=== PATIENT | female | born 1960 | race Caucasian/White ===

== ENCOUNTER → 2018-01-26 | Outpatient (CLI) | payer MEDICARE, OTHER | END | disposition home or self-care (01) | LOC: LAB 13:42 → LAB SHORT 13:42 | PROVIDERS: Nurse Practitioner | DX: Z01.419 Encounter for gynecological examination (general) (routine) without abnormal findings (principal) | CPT/HCPCS: G0145 ==

== ENCOUNTER → 2020-09-10 | Outpatient (CLI) | payer MEDICARE, OTHER | LOC: LAB SHORT 15:46 | DX: N39.0 Urinary tract infection, site not specified (principal) | CPT/HCPCS: 87086 ==

== ENCOUNTER 2022-02-03 08:50 | Day surgery (SDC) | payer MEDICARE, OTHER ==
[~2022-02-03] VITALS: Ht 165.1 cm; Wt 94.0 kg
[2022-02-03] MEDS ORDERED: FLUTICASONE-SA1 EAC1 INH (09:39)
[2022-02-03] MEDS ORDERED: AMIT25 PO (09:40)
[2022-02-03] MEDS ORDERED: Voltaren100 GM TOP (09:40)
[2022-02-03] MEDS ORDERED: NYAMYC15 G1 TOP (09:40)
[2022-02-03] MEDS ORDERED: NYSTATIN15 GM TOP (09:40)
[2022-02-03] MEDS ORDERED: SOLI5 (09:40)
== END 2022-02-03 11:36 | disposition home or self-care (01) ==
LOC: ORSCSDS 08:50
PROVIDERS: Internal Medicine Gastroenterology
PROC: 0DBN8ZX Excision of Sigmoid Colon, Via Natural or Artificial Opening Endoscopic, Diagnostic (ICD-10-PCS; principal; 2022-02-03 10:15)
DX: Z12.11 Encounter for screening for malignant neoplasm of colon (principal); Z86.010 Personal history of colon polyps; D12.5 Benign neoplasm of sigmoid colon; K64.8 Other hemorrhoids; G40.909 Epilepsy, unspecified, not intractable, without status epilepticus; Z79.899 Other long term (current) drug therapy
CPT/HCPCS: 88305; J2704; J7120

== ENCOUNTER → 2023-01-05 | Outpatient (CLI) | payer MEDICARE, OTHER ==
[~2023-01-05] MED LIST: AMIT25 PO; FLUTICASONE-SA1 EAC1 INH; NYAMYC15 G1 TOP; NYSTATIN15 GM TOP; SOLI5; Voltaren100 GM TOP
[2023-01-05 13:48] LABS: BASOPHILS ABSOLUTE AUTO 0.04 K/mm3 (0.00-0.23); BASOPHILS PERCENT AUTO 1 % (0-2); EOSINOPHILS ABSOLUTE AUTO 0.13 K/mm3 (0.00-0.68); EOSINOPHILS PERCENT AUTO 2 % (0-6); Hematocrit 40.4 % (33.0-51.0); Hemoglobin 13.3 g/dL (11.5-16.0); IMMATURE GRAN ABSOLUTE AUTO 0.02 K/mm3 (0.00-0.10); IMMATURE GRAN PERCENT AUTO 0 % (0-1); LYMPHOCYTES ABSOLUTE AUTO 1.75 K/mm3 (0.84-5.20); LYMPHOCYTES PERCENT AUTO 28 % (21-46); MONOCYTES ABSOLUTE AUTO 0.31 K/mm3 (0.16-1.47); MONOCYTES PERCENT AUTO 5 % (4-13); Mean Corpuscular HGB 29.7 pg (26.0-34.0); Mean Corpuscular HGB Conc 32.9 g/dL (31.5-36.5); Mean Corpuscular Volume 90 fL (80-100); Mean Platelet Volume 10.1 fL (9.1-12.4); NEUTROPHILS ABSOLUTE AUTO 3.93 K/mm3 (1.96-9.15); NEUTROPHILS PERCENT AUTO 64 % (41-73); Platelet Count 251 K/mm3 (150-400); RDW Coefficient Variation 12.8 % (11.7-14.2); RDW Standard Deviation 42.6 fL (35.1-46.3); Red Blood Cell Count 4.48 M/mm3 (3.80-5.20); White Blood Cell Count 6.18 K/mm3 (4.00-11.30)
[2023-01-05 15:15] LABS: Alanine Aminotransfer (ALT/SGP 48 U/L (12-78); Albumin, Blood 3.9 g/dL (3.4-5.0); Albumin/Globulin Ratio 1.1 (0.8-1.8); Alk Phos 105 U/L (50-136); Anion Gap 5 mmol/L (6-16); Aspartate Aminotrans (AST/SGOT 24 U/L (12-37); Bilirubin, Total 0.5 mg/dL (0.1-1.0); Blood Urea Nitrogen 11 mg/dL (8-24); CHOL/HDL RATIO 3.1; CO2, Blood 31 mmol/L (21-32); Calcium, Blood 9.7 mg/dL (8.5-10.1); Chloride, Blood 106 mmol/L (98-108); Cholesterol 175 mg/dL (50-200); Globulin, Blood 3.5 g/dL (2.2-4.0); Glucose, Blood 93 mg/dL (70-99); HDL Cholesterol 57 mg/dL (>39); LDL/HDL RATIO 1.8; Low Density Lipoprotein Chol 103 mg/dL (0-110); Sodium, Blood 142 mmol/L (136-145); Total Protein, Blood 7.4 g/dL (6.4-8.2); Triglycerides 77 mg/dL (30-160); Very Low Density Lipoprot Chol 15 mg/dL (6-32)
[2023-01-05 15:18] LABS: Creatinine, Blood 0.65 mg/dL (0.40-1.00); Glomerular Filtration Rate 101 (60-)
[2023-01-05 15:33] LABS: Valproic Acid <3.0 ug/mL (50.0-100.0)
== END | disposition home or self-care (01) ==
LOC: LAB SHORT 09:17 → LAB 09:17
PROVIDERS: Physician Assistant
DX: Z13.220 Encounter for screening for lipoid disorders (principal); G40.209 Localization-related (focal) (partial) symptomatic epilepsy and epileptic syndromes with complex partial seizures, not intractable, without status epilepticus; Z83.3 Family history of diabetes mellitus
CPT/HCPCS: 80053; 80061; 80164; 83036; 85025

== ENCOUNTER 2024-09-07 09:48 | Day surgery (SDC) | payer MEDICARE, OTHER ==
[~2024-09-07 09:48] MED LIST changes: +ALEVAZOL56.7 G1 TOP; +ASCO500 PO; +CRANBERRY125 MG; +Calcium Carbon500 MG PO; +FISH OIL 1,0001 EA10 PO; +FLAX; +Flonase 0.05% N16 GM; +GLUCHON PO; +IRON18 M1; +MELA3; +POTA8; +PROBIOTIC1 EA14; -SOLI5; +SOLI5 PO; +TURMERIC500 M2; +VITAMIN D350 MC3 PO; +Vitamin B Comple1 EA PO; +[UNRECOGNIZED DRUG - OTHER]
== END 2024-09-07 23:00 | disposition home or self-care (01) ==
LOC: MOI US 09:48
DX: D05.11 Intraductal carcinoma in situ of right breast (principal)
CPT/HCPCS: 19285; 77065; A4648; G0279

== ENCOUNTER 2024-09-17 09:26 | Day surgery (SDC) | payer MEDICARE, OTHER ==
[~2024-09-17] VITALS: Ht 162.6 cm; Wt 93.3 kg
[2024-09-17] VITALS (10 sets, daily range): BP systolic 102–141; BP diastolic 58–81
[2024-09-17] MEDS ORDERED: Lactated Ringer's 1,000 ML IV SCH (09:55)
[2024-09-17] MEDS ORDERED: CeFAZolin Sodium 2,000 MG in NS 100 ML IV SCH (09:55)
[2024-09-17] MEDS ORDERED: Bupivacaine 0.5% HCl 5 MG/ML 30MLVIAL ONE ×3 (12:57→13:26)
[2024-09-17] MEDS ORDERED: propofoL 20 ML IV ONE ×2 (13:11→13:52)
[2024-09-17] MEDS ORDERED: FentaNYL Citrate 50 MCG/ML 2 ML Injection ONE (13:11)
--- NOTE | 2024-09-17 13:22 | NUR ---
History, Chart, Medications and Allergies reviewed before start of procedure. Pre-Op teaching done. Pt verbalizes understanding. Patient confirms NPO status and agrees with scheduled surgery. Patient States Post-Procedure ride home has been arranged. MOTHER AT BEDSIDE THOUGHOUT PRE-OP.
[2024-09-17] MEDS ORDERED: propofoL 40 ML IV ONE (13:34)
--- NOTE | 2024-09-17 13:47 | NUR ---
09/17/24 [id number] Kalyn Wood NOTED: SMALL SCRATCHES IN VARIOUS STAGES OF HEALING TO BILATERAL BREASTS
[2024-09-17] MEDS ORDERED: Ondansetron HCl 2 MG / ML 2ML Vial ONE (14:15)
[2024-09-17] MEDS ORDERED: FentaNYL Citrate 50 MCG/ML 2 ML Injection IV PRN ×3 (14:20)
[2024-09-17] MEDS ORDERED: Ondansetron HCl 2 MG / ML 2ML Vial IV PRN (14:20)
[2024-09-17] MEDS ORDERED: HYDROmorphone HCl/Pf 1MG SYR IV PRN (14:20)
[2024-09-17] MEDS ORDERED: HYDROcodone 5-APAP 325 TAB PO PRN (14:40)
--- NOTE | 2024-09-17 15:22 | NUR ---
ASSUMPTION OF CARE: Pt DRINKING ORAL FLUIDS, Pt STATES "NO NAUSEA" NO PAIN AT SURGICAL SITE. SURGICAL SITE CDI, WITH ONE STERI-STRIP IN PLACE. Pt WEARING A BREAST BINDER, AND IS IN PLACE.
--- NOTE | 2024-09-17 16:30 | NUR ---
DISCHARGE NOTE: Discharge instructions reviewed with patient. Patient verbalizes understanding. Copy given to patient to take home. Dressing to procedure site clean, dry, intact with no visible drainage, swelling, erythema or bruising noted. Lungs clear T/O to Auscultation. Patient States Post-Procedure ride home has been arranged. Discharged via wheelchair to private car for ride home. Pt BELONGINGS RETURNED TO Pt.
== END 2024-09-17 16:32 | disposition home or self-care (01) ==
LOC: ORSCMMR 09:26 → ORD 10:30 → ORSCMMR 10:30
PROVIDERS: Surgery
PROC: 0HBT0ZZ Excision of Right Breast, Open Approach (ICD-10-PCS; principal; 2024-09-17 11:30)
DX: C50.411 Malignant neoplasm of upper-outer quadrant of right female breast (principal); Z17.0 Estrogen receptor positive status [ER+]; Z17.21 Progesterone receptor positive status; R62.50 Unspecified lack of expected normal physiological development in childhood
CPT/HCPCS: 88307; 88341; 88342; 88360; J0690; J2405; J2704; J3010; J7120